=== PATIENT | male | born 2000 | race Asian ===

== ENCOUNTER 2025-01-22 23:04 | Emergency (ER) | payer OTHER ==
[~2025-01-22] VITALS: Ht 175.3 cm; Wt 80.0 kg
[2025-01-22 23:19] VITALS: BP 122/86; PULSE 84; RESP 20; TEMP 97.9; O2SAT 100
[2025-01-23] MEDS: OFLOXACIN 0.3% 5 ML OTIC SOLUTION AS ONE (00:55)
== END 2025-01-23 00:55 | disposition home or self-care (01) ==
LOC: EMS 23:54
DX: H60.92 Unspecified otitis externa, left ear (principal)
CPT/HCPCS: 99283